=== PATIENT | male | born 1995 | race Caucasian/White ===

== ENCOUNTER 2018-03-03 21:01 | Emergency (ER) | payer BC, OTHER ==
[2018-03-03] MEDS ORDERED: Erythromycin Base 0.5% Ophth Oint 1 GM Tube EYEBOTH ONE (22:28)
--- NOTE | 2018-03-03 22:34 | EDM.PDOC ---
ED HPI GENERAL MEDICAL PROBLEM - General Chief Complaint: ENT Problem Stated Complaint: SOMETHING IN LEFT EYE- RELATED Time Seen by Provider: 03/03/18 21:25 Source of Information: Reports: Patient History Limitations: Reports: No Limitations - History of Present Illness INITIAL COMMENTS - FREE TEXT/NARRATIVE: Ivan is a 22yo male, presents to ED ambulatory tonight with red and irritated left eye. He believes he may have gotten a clint of dirt or something in the eye 2-3 days ago. 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 Eye became irritated 2-3 days ago. He tried not to rub the eye but did find himself rubbing the eye. He has been using moisturizing eye drops every hour or so with some relief of the irritation but not the redness. There is no drainage. He does not wear contacts, states he has 20/20 vision. No other associated symptoms such as blurred vision or vision change, MONTERO, f/c/s. He is otherwise healthy. He is in the and is planning to travel to [place] this weekend with his crew for training. Onset: Sudden Duration: Day(s): (2-3), Getting Worse Location: Reports: Other (left eye) Improves with: Reports: Medication (eye drops) Worsens with: Reports: Movement (of the eye) Associated Symptoms: Reports: No Other Symptoms Left Eye Pain Score (Numeric/FACES): 2 - Related Data Allergies Allergy/AdvReac Type Severity Reaction Status Date / Time Sulfa (Sulfonamide Allergy Hives Verified 03/03/18 21:12 Antibiotics) Home Meds: Home Meds . [No Known Home Meds] 02/26/14 [History] Past Medical History - Past Health History Medical/Surgical History: Denies Medical/Surgical History Respiratory History: Reports: Pneumonia, Recurrent - Past Surgical History HEENT Surgical History: Reports: Myringotomy w Tube(s) GI Surgical History: Reports: Appendectomy Social & Family History - Tobacco Use Smoking Status *Q: Current Every Day Smoker Years of Tobacco use: 5 Packs/Tins Daily: 0.1 Tobacco Use Comment: Pt states has been cutting back over the past 4 months. Second Hand Smoke Exposure: No - Alcohol Use Days Per Week of Alcohol Use: 0 - Recreational Drug Use Recreational Drug Use: No ED ROS GENERAL - Review of Systems Review Of Systems: See Below Constitutional: Reports: No Symptoms HEENT: Reports: Eye Pain (see HPI). Denies: Contact Lenses, Dental Pain, Ear Pain, Eye Discharge, Rhinitis, Sinus Problem, Throat Pain, Vertigo, Vision Change Respiratory: Reports: No Symptoms Cardiovascular: Reports: No Symptoms Musculoskeletal: Reports: No Symptoms Neurological: Reports: No Symptoms ED EXAM GENERAL W FULL EYE - Physical Exam Exam: See Below Exam Limited By: No Limitations General Appearance: Alert, WD/WN, No Apparent Distress Eye Exam: Left Eye: Conjunctival Injection (left eye is injected, right is not) , Foreign Body (medial side of lt eye, border of iris, clint of debris--most likely is metal ring. ), Bilateral Eye: EOMI, PERRL Eyelids: Left: Lid Everted for Exam (normal), Bilateral: Normal Appearance Conjunctiva & Sclera: Left: Foreign Body (metal ring present, Dr. aCndelario attempted as well to remove object with eye tool but was unable to feel or palpate any FB over area of concern- revealing likely findings of metal ring from prior FB no longer present) Extraocular Movements: Bilateral: Intact Pupillary Size: Bilateral: 3 mm Pupillary Reaction: Bilateral: Brisk Ears: Normal External Exam, Hearing Grossly Normal Nose: Normal Inspection Throat/Mouth: Normal Inspection, Normal Lips, Normal Voice, No Airway Compromise. No: Normal Teeth (poor dentition), Normal Gums (inflammed) Head: Atraumatic, Normocephalic Neck: Normal Inspection Respiratory/Chest: Normal Breath Sounds Cardiovascular: No Edema Neurological: Alert, Oriented, Normal Cognition Psychiatric: Normal Affect, Normal Mood Skin Exam: Warm, Dry, Intact ED EYE w/ Add Procedure - Eye Procedure Alcaine Drops Administered: Yes Eye FB Removal: Removal w/ Cotton Swab (attempts but unable to remove any FB; Dr. Candelario then attempted without succ) Progress: Dr. Candelario attempted removal with metal eye hook. He was unable to palpate FB over area of concern/discoloration. Likely believed to be metal ring from prior metal FB that has now been removed or washed out. Ribbon of erythromycin ointment is instilled and eye patched for the night by nursing. Course - Vital Signs Last Recorded V/S: Last Vital Signs Temp 98.2 F 03/03/18 21:19 Pulse 59 L 03/03/18 21:19 Resp 16 03/03/18 21:19 BP 132/89 03/03/18 21:19 Pulse Ox 98 03/03/18 21:19 - Orders/Labs/Meds Meds: Medications Discontinued Medications Generic Name Dose Route Start Last Admin Trade Name Ashlie PRN Reason Stop Dose Admin Erythromycin 1 gm 03/03/18 22:28 Erythromycin 0.5% Ophth Oint EYEBOTH 03/03/18 22:29 ONETIME ONE Departure - Departure Time of Disposition: 22:29 Disposition: Home, Self-Care 01 Condition: Good Clinical Impression: Foreign body of eye, external, left Qualifiers: Encounter type: initial encounter Qualified Code(s): T15.92XA - Foreign body on external eye, part unspecified, left eye, initial encounter - Discharge Information Instructions: Eye Foreign Body, [id number] Referrals: PCP,Not In Area [Primary Care Provider] - Forms: ED Department Discharge Additional Instructions: Erythromycin ointment to left eye at bedtime and patch the left eye at night. Instymed rx for Erythromycin ointment given Avoid rubbing the left eye You should use moisturizing eye drops such as Refresh every hour as needed during the day to keep the eye moist and less irritated. Follow up with [facility] or Opthamologist as soon as possible or on Tuesday morning; this is imperative! Avoid driving long distances, anything greater than 2 hours as eye will become more irritated. Shower and bathe as usual. You can use tylenol or motrin as needed 3 times daily with food for discomfort.
== END 2018-03-03 22:40 | disposition home or self-care (01) ==
LOC: JD.ED 21:01
DX: T15.92XA Foreign body on external eye, part unspecified, left eye, initial encounter (principal); F17.210 Nicotine dependence, cigarettes, uncomplicated; Z88.2 Allergy status to sulfonamides
CPT/HCPCS: 99283; A9270